=== PATIENT | female | born 1975 | race Caucasian/White ===

== ENCOUNTER 2016-12-04 09:27 | Emergency (ER) | payer MEDICAID ==
[~2016-12-04] VITALS: Ht 157.5 cm; Wt 54.4 kg
--- NOTE | 2016-12-04 09:55 | NUR ---
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 [id number]. Denies n/v, SOB, no other complaints, no distress noted. Urine sample obtained and taken to lab.
[2016-12-04 10:00] LABS: *BILIRUBIN,URIN NEGATIVE (NEGATIVE); *BLOOD, URINE 2+ (NEGATIVE); *CLARITY,URINE CLOUDY (CLEAR); *COLOR,URINE YELLOW (YELLOW); *KETONES,URINE NEGATIVE (NEGATIVE); *PROTEIN,URINE 2+ (NEGATIVE); *UROBILINOGEN,URINE 0.2 E.U./dl (NORMAL); LEUKOCYTE ESTERASE ,URINE 2+ (NEGATIVE); NITRITE, URINE NEGATIVE (NEGATIVE); UGLUCOSE NEGATIVE (NEGATIVE)
[2016-12-04 10:08] LABS: *URINE HCG, QUAL NEGATIVE (NEGATIVE)
[2016-12-04] MEDS ORDERED: PHENAZOPYRIDINE HCL 100 MG TABLET PO ONE (10:15)
[2016-12-04] MEDS ORDERED: LEVOFLOXACIN 750 MG TABLET PO ONE (10:15)
[2016-12-04] MEDS ORDERED: PHENAZOPYRIDINE HCL 100 MG TABLET ONE (10:16)
[2016-12-04] MEDS ORDERED: LEVOFLOXACIN 750 MG TABLET ONE (10:17)
[2016-12-04 10:29] LABS: BACTERIA,URINE MODERATE /HPF (NONE SEEN); SQUAMOUS EPITHELIAL CELL,UR FEW /HPF (NONE SEEN); WBC,URINE TNTC /HPF (0-3)
--- NOTE | 2016-12-04 11:05 | NUR ---
Gave pt RX and d/c instructions, verbalized understanding.
== END 2016-12-04 11:21 | disposition home or self-care (01) ==
LOC: ER 09:27
DX: N30.80 Other cystitis without hematuria (principal)
CPT/HCPCS: 81001; 84703; 87077; 87086; 87186; 99284; A4663